=== PATIENT | female | born 1965 | race Two or more races ===

== ENCOUNTER → 2021-06-29 | Emergency (ER) | payer OTHER ==
[~2021-06-29] VITALS: Ht 157.5 cm; Wt 77.1 kg
[~2021-06-29] MED LIST: ADVAIR 2501 DISK W/1 IH; AVALIDE 300-251 TAB PO; BUPROPION HCL100 M1 PO; BUSPIRONE HCL7.5 MG PO; DOXAZOSIN MESYLA1 GM MC; GLUCOPHAGE XR500 MG PO; GLUMETZA500 MG PO; HORIZANT600 MG PO; HYSINGLA ER20 MG PO; IRBESARTAN300 MG PO; JARDIANCE25 MG PO; KLONOPIN0.5 MG/TAB PO; MONTELUKAST SODI4 M1; PAROXETINE CR25 MG PO; PAXIL CR25 MG PO; SIMVASTATIN5 MG PO; TIZANIDINE HCL2 M1 PO; ZYLOPRIM100 M1 PO
== END | disposition home or self-care (01) ==
LOC: ER 09:16 → CPU-OBS 09:28 → ER 09:28
DX: I44.2 Atrioventricular block, complete (principal); R55 Syncope and collapse; Z11.52 Encounter for screening for COVID-19